=== PATIENT | male | born 1995 | race Caucasian/White ===

== ENCOUNTER 2021-03-15 03:37 | Inpatient (IN) | payer MEDICAID ==
[~2021-03-15] VITALS: Ht 175.3 cm; Wt 79.5 kg
[2021-03-15] MEDS ORDERED: HYDR-3421 PO (04:10)
[2021-03-15] MEDS ORDERED: RISP2TAB45 PO (04:10)
[2021-03-15] MEDS ORDERED: HYDR50CA6 PO (04:10)
[2021-03-15] MEDS ORDERED: TRAZ-252 PO (04:10)
[2021-03-15] MEDS ORDERED: DiphenhydrAMINE HCL 50 MG/ML VIAL IM ONE (04:15)
[2021-03-15] MEDS ORDERED: HALOPERIDOL LACTATE 5 MG/ML VIAL IM ONE (04:15)
[2021-03-15] MEDS ORDERED: LORazepam 2 MG/ML VIAL IM ONE (04:15)
[2021-03-15 04:43] LABS: COVID AG,FIA SOURCE NASOPHARYNGEAL
[2021-03-15] MEDS: HALOPERIDOL 5 MG TABLET PO PRN (16:10)
[2021-03-15] MEDS: LORazepam 2 MG TABLET PO PRN (16:10)
[2021-03-15 16:22] VITALS: BP 106/62
[2021-03-15] MEDS ORDERED: LOPERAMIDE HCL 2 MG CAPSULE PO PRN (19:45)
[2021-03-15] MEDS ORDERED: PETROLATUM,WHITE 28 GM JELLY TP PRN (19:45)
[2021-03-15] MEDS ORDERED: MAG HYDROX/AL HYDROX/SIMETH ES 30 ML SUSPENSION UDCUP PO PRN (19:45)
[2021-03-15] MEDS ORDERED: MAGNESIUM HYDROXIDE SUSPENSION 30 ML UDCUP PO PRN (19:45)
[2021-03-15] MEDS ORDERED: IBUPROFEN 400 MG TABLET PO PRN (19:45)
[2021-03-15] MEDS ORDERED: CloNIDine HCL 0.1 MG TABLET PO PRN (19:45)
[2021-03-15] MEDS ORDERED: GuaiFENesin/D-METHORPHAN [SUGAR-FREE] 200-20MG/10 ML SYRUP UDCUP PO PRN (19:45)
[2021-03-15] MEDS ORDERED: DOCUSATE SODIUM 100 MG CAPSULE PO PRN (19:45)
[2021-03-15] MEDS ORDERED: ALBUTEROL SULFATE HFA 90 MCG/PUFF 8 GM INHALER IH PRN (19:45)
[2021-03-15] MEDS ORDERED: ACETAMINOPHEN 325 MG TABLET PO PRN (19:45)
[2021-03-15] MEDS ORDERED: ONDANSETRON HCL 4 MG TABLET PO PRN (19:45)
[2021-03-16 00:58] VITALS: BP 140/92
[2021-03-16] MEDS: ZOLPIDEM TARTRATE 10 MG TABLET PO PRN (01:08)
[2021-03-16] MEDS: HALOPERIDOL 5 MG TABLET PO PRN ×2 (07:57→17:21)
[2021-03-16] MEDS: LORazepam 2 MG TABLET PO PRN ×2 (07:57→17:21)
[2021-03-16] MEDS ORDERED: DiphenhydrAMINE HCL 50 MG/ML VIAL ONE (08:24)
[2021-03-16] MEDS ORDERED: LORazepam 2 MG/ML VIAL ONE (08:24)
[2021-03-16] MEDS ORDERED: HALOPERIDOL LACTATE 5 MG/ML VIAL ONE (08:24)
[2021-03-16] MEDS ORDERED: LORazepam 2 MG/ML VIAL IM ONE (08:30)
[2021-03-16] MEDS ORDERED: DiphenhydrAMINE HCL 50 MG/ML VIAL IM ONE (08:30)
[2021-03-16] MEDS ORDERED: HALOPERIDOL LACTATE 5 MG/ML VIAL IM ONE (08:30)
[2021-03-16 08:36] VITALS: BP 115/71
[2021-03-16] MEDS: QUEtiapine FUMARATE 200 MG TABLET PO SCH ×2 (12:15→21:14)
[2021-03-16 16:35] VITALS: BP 112/69
[2021-03-17 05:37] VITALS: BP 131/91
[2021-03-17] MEDS: QUEtiapine FUMARATE 200 MG TABLET PO SCH ×2 (08:46→20:51)
[2021-03-17] MEDS: LORazepam 2 MG TABLET PO PRN ×2 (08:46→19:18)
[2021-03-17 09:01] VITALS: BP 130/80
[2021-03-17] MEDS ORDERED: LORazepam 2 MG/ML VIAL ONE (09:20)
[2021-03-17] MEDS ORDERED: HALOPERIDOL LACTATE 5 MG/ML VIAL ONE (09:20)
[2021-03-17] MEDS ORDERED: DiphenhydrAMINE HCL 50 MG/ML VIAL ONE (09:21)
[2021-03-17] MEDS ORDERED: LORazepam 2 MG/ML VIAL IM ONE ×2 (09:30→09:45)
[2021-03-17] MEDS ORDERED: DiphenhydrAMINE HCL 50 MG/ML VIAL IM ONE ×2 (09:30→09:45)
[2021-03-17] MEDS ORDERED: HALOPERIDOL LACTATE 5 MG/ML VIAL IM ONE ×2 (09:30→09:45)
[2021-03-17 16:37] VITALS: BP 135/82
[2021-03-17] MEDS: HALOPERIDOL 5 MG TABLET PO PRN (19:18)
[2021-03-17] MEDS: ZOLPIDEM TARTRATE 10 MG TABLET PO PRN (20:51)
[2021-03-18 01:16] VITALS: BP 129/81
[2021-03-18] MEDS: LORazepam 2 MG TABLET PO PRN ×2 (08:30→14:43)
[2021-03-18] MEDS: QUEtiapine FUMARATE 200 MG TABLET PO SCH ×2 (08:43→20:23)
[2021-03-18 09:15] VITALS: BP 133/76
[2021-03-18 16:18] VITALS: BP 124/79
[2021-03-18] MEDS: HALOPERIDOL 5 MG TABLET PO PRN (17:22)
[2021-03-18] MEDS: ZOLPIDEM TARTRATE 10 MG TABLET PO PRN (20:23)
[2021-03-19 05:10] VITALS: BP 129/78
[2021-03-19 08:36] LABS: BILIRUBIN,URINE NEGATIVE (NEGATIVE); GLUCOSE, URINE (UA) NEGATIVE (NEGATIVE); KETONES,URINE NEGATIVE (NEGATIVE); LEUKOCYTE ESTERASE ,URINE NEGATIVE (NEGATIVE); NITRATE,URINE NEGATIVE (NEGATIVE); OCCULT BLOOD,URINE NEGATIVE (NEGATIVE); PROTEIN,URINE NEGATIVE (NEGATIVE); UROBILINOGEN,URINE 0.2 mg/dL (<=1.0)
[2021-03-19 08:38] VITALS: BP 121/67
[2021-03-19 08:42] LABS: AMPHET/METH SCREEN,URINE NEGATIVE (NEGATIVE); BARBITURATE SCREEN, URINE NEGATIVE (NEGATIVE); BENZODIAZEPINES SCREEN,URINE NEGATIVE (NEGATIVE); CANNABINOID SCREEN,URINE NEGATIVE (NEGATIVE); COCAINE SCREEN,URINE NEGATIVE (NEGATIVE); METHADONE SCREEN, URINE NEGATIVE (NEGATIVE); OPIATE SCREEN,URINE NEGATIVE (NEGATIVE)
[2021-03-19] MEDS: QUEtiapine FUMARATE 200 MG TABLET PO SCH ×2 (08:42→20:01)
[2021-03-19 08:53] LABS: PHENCYCLIDINE SCREEN,URINE NEGATIVE (NEGATIVE)
[2021-03-19 11:00] LABS: APPEARANCE,URINE HAZY (CLEAR)
[2021-03-19] MEDS: LORazepam 2 MG TABLET PO PRN ×2 (14:45→19:29)
[2021-03-19 16:15] VITALS: BP 102/71
[2021-03-19] MEDS: ZOLPIDEM TARTRATE 10 MG TABLET PO PRN (20:01)
[2021-03-20 05:37] VITALS: BP 110/67
[2021-03-20] MEDS: QUEtiapine FUMARATE 200 MG TABLET PO SCH ×2 (08:42→20:43)
[2021-03-20] MEDS: LORazepam 2 MG TABLET PO PRN ×2 (08:42→17:27)
[2021-03-20 08:47] VITALS: BP 122/76
[2021-03-20 09:18] LABS: BASOPHILS % (AUTO) 0.3 % (0.0-2.0); HEMATOCRIT 45.4 % (41-53); HEMOGLOBIN 15.5 g/dL (13.5-17.5); LYMPHOCYTES # (AUTO) 1.7 K/uL (1.0-4.8); LYMPHOCYTES % (AUTO) 20.2 % (22.0-44.0); MEAN CORPUSCULAR HEMOGLOBIN 29.8 pg (26.0-34.0); MEAN CORPUSCULAR HGB CONC 34.1 G/dL (31.0-37.0); MEAN CORPUSCULAR VOLUME 88 fL (80-100); MONOCYTES # (AUTO) 0.5 K/uL (0.1-1.0); MONOCYTES % (AUTO) 5.9 % (2.0-9.0); NEUTROPHILS % (AUTO) 71.6 % (40.0-70.0); PLATELET COUNT (AUTO) 271 K/uL (150-450); RED BLOOD CELL COUNT(AUTO) 5.18 MIL/uL (4.50-5.90); RED CELL DISTRIBUTION WIDTH 12.6 % (11.5-14.5)
[2021-03-20 09:23] LABS: HEMOGLOBIN A1C 5.1 % (3.8-5.6)
[2021-03-20 09:27] LABS: ANION GAP 8 mmol/L (8-16); CARBON DIOXIDE 26 mmol/L (22-29); CHLORIDE 102 mmol/L (98-107); CREATININE 0.98 mg/dL (0.60-1.30); GLOMERULAR FILTR. RATE CALC > 60 mL/min (>60); GLUCOSE,RANDOM 122 mg/dL (70-110); POTASSIUM 3.8 mmol/L (3.5-5.1); SODIUM SERUM 136 mmol/L (136-145); UREA NITROGEN, BLOOD 13 mg/dL (7-18)
[2021-03-20 09:41] LABS: ALANINE AMINOTRANSFERASE 36 U/L (12-78); ALBUMIN 4.1 g/dL (3.4-5.0); ALKALINE PHOSPHATASE 104 U/L (46-116); ASPARTATE AMINOTRANSFERASE 27 U/L (15-37); BILIRUBIN,TOTAL 0.4 mg/dL (0.1-1.0); CHOL/HDL RATIO 4.8 (4.2-7.3); CHOLESTEROL 145 mg/dL (131-200); FREE T4 (FREE THYROXINE) 1.05 ng/dL (0.76-1.46); HDL CHOLESTEROL 30 mg/dL (40-60); LDL CHOL (CALC.) 92 mg/dL (0-130); THYROID STIMULATING HORMONE 1.33 uIU/mL (0.36-3.74); TOTAL PROTEIN, SERUM 7.7 g/dL (6.4-8.2); TRIGLYCERIDES 116 mg/dL (15-150)
[2021-03-20 09:44] LABS: ACETAMINOPHEN < 2 mcg/mL (10-30)
[2021-03-20 09:50] LABS: SALICYLATE 0.3 mg/dL (2.8-20.0)
[2021-03-20 16:38] VITALS: BP 121/80
[2021-03-20] MEDS: HALOPERIDOL 5 MG TABLET PO PRN (17:27)
[2021-03-20] MEDS: ZOLPIDEM TARTRATE 10 MG TABLET PO PRN (20:43)
[2021-03-21 04:06] VITALS: BP 117/76
[2021-03-21 08:33] VITALS: BP 125/71
[2021-03-21] MEDS: LORazepam 2 MG TABLET PO PRN ×2 (08:42→17:14)
[2021-03-21] MEDS: QUEtiapine FUMARATE 200 MG TABLET PO SCH ×2 (08:42→20:15)
[2021-03-21] MEDS: NICOTINE 14 MG/24 HOUR PATCH TD PRN (14:51)
[2021-03-21 16:20] VITALS: BP 101/65
[2021-03-21] MEDS: ZOLPIDEM TARTRATE 10 MG TABLET PO PRN (20:16)
[2021-03-22 00:24] VITALS: BP 112/65
[2021-03-22] MEDS: LORazepam 2 MG TABLET PO PRN ×2 (08:40→20:50)
[2021-03-22 08:50] VITALS: BP 109/68
[2021-03-22] MEDS: QUEtiapine FUMARATE 200 MG TABLET PO SCH ×2 (08:50→20:50)
[2021-03-22] MEDS: NICOTINE 14 MG/24 HOUR PATCH TD PRN (09:15)
[2021-03-22 16:21] VITALS: BP 110/77
[2021-03-22] MEDS: ZOLPIDEM TARTRATE 10 MG TABLET PO PRN (21:35)
[2021-03-23 05:11] VITALS: BP 114/71
[2021-03-23 08:07] VITALS: BP 129/81
[2021-03-23] MEDS: LORazepam 2 MG TABLET PO PRN ×2 (09:29→17:08)
[2021-03-23] MEDS: QUEtiapine FUMARATE 200 MG TABLET PO SCH ×2 (09:30→20:24)
[2021-03-23] MEDS: HALOPERIDOL 5 MG TABLET PO PRN (17:08)
[2021-03-23 18:21] VITALS: BP 104/72
[2021-03-24 05:56] VITALS: BP 116/75
[2021-03-24] MEDS: QUEtiapine FUMARATE 200 MG TABLET PO SCH ×2 (08:21→20:48)
[2021-03-24] MEDS: LORazepam 2 MG TABLET PO PRN ×2 (08:21→17:09)
[2021-03-24 08:53] VITALS: BP 121/66
[2021-03-24] MEDS: HALOPERIDOL 5 MG TABLET PO PRN ×2 (09:11→17:09)
[2021-03-24] MEDS: NICOTINE 14 MG/24 HOUR PATCH TD PRN (11:36)
[2021-03-24 16:22] VITALS: BP 116/66
[2021-03-24] MEDS: ZOLPIDEM TARTRATE 10 MG TABLET PO PRN (20:49)
[2021-03-25 04:43] VITALS: BP 118/67
[2021-03-25] MEDS: QUEtiapine FUMARATE 200 MG TABLET PO SCH (08:21)
[2021-03-25 08:39] VITALS: BP 114/64
[2021-03-25] MEDS: HALOPERIDOL 5 MG TABLET PO PRN ×2 (08:42→13:36)
[2021-03-25] MEDS ORDERED: QUET200T PO (14:06)
== END 2021-03-25 15:00 | disposition home or self-care (01) | DRG 750 ==
LOC: EMS 03:38 → B3A 13:35
PROVIDERS: ADMIT Psychiatry & Neurology Psychiatry; ATTEND Psychiatry & Neurology Psychiatry
DX: F20.0 Paranoid schizophrenia (principal); I95.9 Hypotension, unspecified; F84.0 Autistic disorder; Z20.822 Contact with and (suspected) exposure to COVID-19; K59.00 Constipation, unspecified; G47.00 Insomnia, unspecified; I10 Essential (primary) hypertension
CPT/HCPCS: 80053; 80061; 81003; 83036; 84439; 84443; 85025; 87081; 99285; G0480; G0481; J1200; J1630; J2060